=== PATIENT | female | born 1980 | race Caucasian/White ===

== ENCOUNTER 2022-06-03 10:04 | Emergency (ER) | payer MEDICAID, SELFPAY ==
[2022-06-03 10:15] VITALS: BP 136/88; PULSE 98; RESP 16; TEMP 36.1; O2SAT 97; BMI 19.5
--- NOTE | 2022-06-03 10:39 | W.ED.ANXIETY ---
HPI - Anxiety General: Chief Complaint: Anxiety Stated Complaint: anxiety Time Seen by Provider: 06/03/22 10:25 Source: patient Mode of arrival: ambulatory History of Present Illness: 42-year-old female presents emergency room she is extremely anxious she is in a [facility] she cannot use marijuana there and she wants a refill on her trazodone she had previously been prescribed trazodone 50 had a chest she has been taking it multiple times a day and listening to it sounds like she take anywhere from 2 to 300 mg total a day and she is used to follow-up she wants a refill. He does not have a primary care doctor she [facility] complaint: anxiety Onset (ago): unknown Severity: moderate Quality: constant History of similar episodes: Yes Provoking factors: emotional stress Relieving factors: other (Marijuana) Exacerbating factors: nothing Associated symptoms: Deny anorexia, chest pain, chills, confusion, diaphoresis, fever(s), headache(s), malaise, nausea, palpitations, short of breath, syncope or vomiting Review of Systems Const: Denies: fever(s), chills, fatigue, malaise or diaphoresis ENMT: Denies: throat pain, ear or mastoid pain, nasal discharge or nasal congestion Card: Denies: chest pain, palpitations or syncope Resp: Denies: dyspnea, productive cough or non-productive cough GI: Denies: abdominal pain, nausea or vomiting : Denies: flank pain, difficulty voiding, dysuria, urinary frequency or urinary urgency Skin/Breast: Denies: rash or pruritus Neuro: Denies: headache(s) or confusion [facility] PFSH: Social History (Updated 06/03/22 @ 13:00 by Brian Bear DO) Smoking and tobacco status: current every day smoker Alcohol intake: unknown Substance/Drug Use: current Substance/Drug use frequency: daily Substance/Drug use type: Marijuana Physical Exam Const: GENERAL APPEARANCE: cooperative and comfortable ORIENTATION/CONSCIOUSNESS: Yes awake, Yes oriented to person, Yes oriented to place and Yes oriented to time HENMT: COMMON NORMALS: normocephalic, atraumatic and hearing grossly normal bilaterally HEAD & SCALP: normocephalic and atraumatic Resp: COMMON NORMALS: normal respiratory effort, No retractions, No use of accessory muscles and clear to auscultation bilaterally AUSCULTATION: clear to auscultation bilaterally Cardio: COMMON NORMALS: regular rate, regular rhythm and No murmurs present (Cardio) RATE: regular rate RHYTHM: regular rhythm GI: COMMON NORMALS: Soft to palpation and No hepatosplenomegaly present AUSCULTATION: Yes normoactive bowel sounds PALPATION: Yes Soft to palpation, No Tenderness to palpation present (GI), No Guarding due to palpation present (GI) and Yes No hepatosplenomegaly present Extremity: COMMON NORMALS: normal to inspection, capillary refill normal, no clubbing, cyanosis or edema, no calf tenderness and no pedal edema Neuro: SENSORIUM/ORIENTATION: Yes oriented to person, Yes oriented to place and Yes oriented to time Skin: COMMON NORMALS: no rashes or lesions noted GENERAL SKIN EXAM: no rashes or lesions noted Course Vital Signs: Vital signs: Vital Signs Temperature 97 F L 06/03/22 10:15 Pulse Rate 98 06/03/22 10:15 Respiratory Rate 16 06/03/22 10:15 Blood Pressure 136/88 06/03/22 10:15 Pulse Oximetry 97 06/03/22 10:15 Oxygen Delivery Me thod 06/03/22 10:15 MDM - Anxiety Medical Decision Making Refill trazodone 50 at at bedtime for 7 days. 12 Case management set up to see [facility] and establish with a primary care physician. Cautioned patient against increasing the dose of the trazodone. She exhibits mild emilia symptoms there is no suicidal homicidal or dangerous aspect to her emilia at this point. Medical Records I reviewed the patient's medical records. Lab Data I reviewed the patient's lab results. Discharge Plan Discharge Patient Disposition: Home Clinical Impression: Acute anxiety Condition: Stable Prescriptions: New trazodone 50 mg tablet 50 mg PO .QHS Qty: 7 0RF Discharge Orders: Discharge ED (Routine); Ordered 06/03/22 Ordered By: Brian Bear Discharge Diet: Usual diet Discharge Activity: Increase activity as tolerated Patient Instructions: Opioid Safety, Pain Management Activity Restrictions/Additional Instructions: Case management will make arrangements for you to set up at [facility] and with a primary care physician. Coding Level of Care Code ED Operational Intelligence Analyst for Jordan De
--- NOTE | 2022-06-05 13:49 | DCPLANNER ---
Addendum entered by Emily Watson 06/28/22 11:48: Patient had a follow up appointment scheduled with [facility] with Dr. Griffin - patient did attend appointment. Original Note: casino duty manager had message to speak with patient about starting services at [facility]. casino duty manager explained that patient can walk into [facility] anytime Sunday thru Sunday 7:30 to 3:00 fill out initial paperwork, and complete the initial assessment. casino duty manager had message to speak with patient about getting established with a primary care physician. Patient has a follow up appointment scheduled for Tuesday June 07, 2022 at 2:[address] Casillas at [facility] to establish care.
== END 2022-06-03 11:00 | disposition home or self-care (01) ==
PROVIDERS: Emergency Provider Family Medicine
DX: F41.9 Anxiety disorder, unspecified (principal); F17.210 Nicotine dependence, cigarettes, uncomplicated
CPT/HCPCS: 99283

== ENCOUNTER → 2022-06-07 14:28 | Outpatient (BNVA) | payer MEDICAID, SELFPAY | PROVIDERS: Visit Provider Family Medicine | DX: F31.10 Bipolar disorder, current episode manic without psychotic features, unspecified (principal) | CPT/HCPCS: 80053; 80061; 85025 ==

== ENCOUNTER 2022-07-07 12:08 | Emergency (ER) | payer MEDICAID, SELFPAY ==
[2022-07-07 12:15] VITALS: PULSE 89; RESP 24; TEMP 36.6; O2SAT 98; BMI 22.2
[2022-07-07 12:56] VITALS: RESP 40
[2022-07-07] MEDS: fentaNYL 50 mcg/mL INJ 2mL 25 MCG IVP (12:56)
[2022-07-07] MEDS: ketorolac 30 mg/mL INJ IVP (12:57)
[2022-07-07] MEDS: tetanus-dipt-pertussis 0.5 mL SDV IM (12:57)
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
[2022-07-07 14:28] VITALS: RESP 18
[2022-07-07] MEDS: fentaNYL 50 mcg/mL INJ 2mL IVP (14:28)
[2022-07-07 15:14] VITALS: BP 142/75; PULSE 97; RESP 16
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
== END 2022-07-07 15:18 | disposition home or self-care (01) ==
PROVIDERS: Emergency Provider Nurse Practitioner; PCP Family Medicine
DX: T24.212A Burn of second degree of left thigh, initial encounter (principal); T31.0 Burns involving less than 10% of body surface; X12.XXXA Contact with other hot fluids, initial encounter; F17.210 Nicotine dependence, cigarettes, uncomplicated; Z23 Encounter for immunization
CPT/HCPCS: 90471; 90715; 96374; 96375; 99284; J1885; J3010

== ENCOUNTER 2022-08-12 09:45 | Emergency (ER) | payer MEDICAID, SELFPAY ==
[2022-08-12 09:52] VITALS: BP 112/66; PULSE 88; O2SAT 99; BMI 22.2
--- NOTE | 2022-08-12 10:07 | W.ED.DENTAL ---
HPI - Dental/Oral General: Chief complaint: Dental/Oral Stated complaint: tooth pain Time Seen by Provider: 08/12/22 09:53 History of Present Illness: Patient is a 42-year-old female comes to the ED with dental pain. Dental pain started approximately several days ago. She states her dental pain is mild. She has an appointment with a dentist in a couple weeks. Associated symptoms: Denies fever(s) or odynophagia Review of Systems Const: Denies: fever(s), chills or fatigue Eyes: Denies: change in vision or eye discomfort ENMT: Reports: dental pain; Denies: throat pain, odynophagia, nasal discharge or nasal congestion Card: Denies: chest pain, palpitations, edema, swelling of feet/ankles, dyspnea on exertion or orthopnea Resp: Denies: dyspnea, productive cough or non-productive cough GI: Denies: abdominal pain, nausea, vomiting, diarrhea, constipation or hematochezia : Denies: flank pain, dysuria or hematuria Musc: Denies: neck pain, back pain or extremity swelling Skin/Breast: Denies: rash or new lesions Neuro: Denies: headache(s), numbness in extremities or weakness in extremities PFSH ED PFSH: Medical History Acute anxiety History of arm fracture Surgical History History of breast augmentation History of History of surgery on right wrist Family History Other Cancer Diabetes Social History (Updated 07/13/22 @ 09:31 by Juju Back LPN) Smoking and tobacco status: current every day smoker cigarettes [ Other cigarette details: 5-10/day current. 30PY] Alcohol intake: former Former alcohol use details: quit 5yrs ago. lots of usage Desire information about alcohol rehabilitation?: No Lives independently: Yes Housing: Homeless Female Reproductive History: Date of last menstrual period: 05/23/22 Para: 3 Physical Exam Const: COMMON NORMALS: no acute distress, patient oriented x3, healthy appearing and alert GENERAL APPEARANCE: cooperative and comfortable HENMT: COMMON NORMALS: normocephalic HEAD & SCALP: normocephalic MOUTH: Normal oral and palatal mucosa present TEETH & GINGIVA: Yes abnormal tooth and associated gingiva lower left third molar and Yes caries THROAT: posterior oropharynx normal and uvula midline Neck/C-Spine: COMMON NORMALS: supple GENERAL: Yes normal visual inspection Resp: COMMON NORMALS: normal respiratory effort, No retractions, No use of accessory muscles and clear to auscultation bilaterally AUSCULTATION: clear to auscultation bilaterally Cardio: COMMON NORMALS: regular rate, regular rhythm, S1 normal heart sound present, S2 normal heart sound present, No gallops present (Cardio), No clicks present (Cardio), No murmurs present (Cardio) and Peripheral pulses 2+ throughout RATE: regular rate RHYTHM: regular rhythm HEART SOUNDS: S1 normal heart sound present and S2 normal heart sound present PERIPHERAL PULSES: Peripheral pulses 2+ throughout GI: COMMON NORMALS: Normal to inspection, nondistended, normoactive bowel sounds present, Soft to palpation, non-tender and no masses PALPATION: Yes Soft to palpation : COMMON NORMALS: Yes no CVA tenderness BLADDER/KIDNEY EXAM: Yes no CVA tenderness Back/Pelvis: COMMON NORMALS: no CVA tenderness Extremity: COMMON NORMALS: normal to inspection Neuro: COMMON NORMALS: patient oriented x3 SENSORIUM/ORIENTATION: Yes alert GAIT: Yes Normal gait present Skin: GENERAL SKIN EXAM: dry skin Course Vital Signs: Vital signs: Vital Signs Pulse Rate 88 08/12/22 09:52 Blood Pressure 112/66 08/12/22 09:52 Pulse Oximetry 99 08/12/22 09:52 Oxygen Delivery Me thod 08/12/22 09:52 MDM - Dental/Oral Medical Decision Making Patient is a 42-year-old female comes to the ED with dental pain. Patient has an appointment with a dentist a couple weeks. Vitals are stable. Exam of patient shows extensive dental caries and dental decay of bilateral left third molar. Patient was diagnosed with dental caries and was discharged home with clindamycin. Patient understood and agreed with plan. Discharge Plan Discharge Patient Disposition: Home Clinical Impression: Dental caries Condition: Stable Prescriptions: New clindamycin HCl 150 mg capsule 300 mg PO QID 7 Days Qty: 56 0RF No Action venlafaxine [Effexor XR] 37.5 mg capsule,extended release 24hr 37.5 mg PO DAILY Qty: 30 0RF Clindamycin PO 1XD Discharge Orders: Discharge ED (Routine); Ordered 08/12/22 Ordered By: Aurelio Tillman Referrals: Venkata Casillas MD [Primary Care Provider] - Discharge Diet: Regular Discharge Activity: Increase activity as tolerated Patient Instructions: Dental Caries (Cavities) Activity Restrictions/Additional Instructions: Follow-up with medical provider as directed. Take medications as prescribed. Return to the ER or your medical provider if condition worsens. Please read and understand discharge instructions. Thank you for choosing [facility] for your healthcare needs today. Please realize this is an emergency room and that we are providing you with a medical screening exam and this may not be complete and all inclusive of all the testing and or work up that you may need to determine your ailment or severity of your illness. It is very important that you follow up as instructed or that you return to the Emergency Department should you have concerns or if your condition changes or worsens in any way. Coding Level of Care Code ED Campaign Consultant for Chg Fwd Exam Comprehensive
[2022-08-12] MEDS: clindamycin 150 mg Capsule 300 MG PO (10:13)
== END 2022-08-12 10:16 | disposition home or self-care (01) ==
PROVIDERS: Emergency Provider Physician Assistant; PCP Family Medicine
DX: K02.9 Dental caries, unspecified (principal); F17.210 Nicotine dependence, cigarettes, uncomplicated
CPT/HCPCS: 99283